=== PATIENT | male | born 2000 | race Caucasian/White ===

== ENCOUNTER 2023-03-28 15:30 | Outpatient (CLI) | payer OTHER, SELFPAY ==
[2023-03-28 16:27] LABS: Alanine Aminotransferase 16 U/L (6-50); Albumin Level 4.4 g/dL (3.5-5.1); Alkaline Phosphatase 57 U/L (38-126); Amylase 113 U/L (30-110); Aspartate Amino Transferase 22 U/L (17-59); Bilirubin,Total 0.5 mg/dL (0.2-1.3); Lipase 76 U/L (23-300)
== END 2023-03-28 15:31 | disposition home or self-care (01) ==
LOC: ANHLAB 15:31
PROVIDERS: Visit Provider Surgery
DX: K80.10 Calculus of gallbladder with chronic cholecystitis without obstruction (principal); Z01.818 Encounter for other preprocedural examination
CPT/HCPCS: 36415; 80076; 82150; 83690; 86850; 86900; 86901

== ENCOUNTER 2023-03-29 02:30 | Day surgery (SDC) | payer OTHER, SELFPAY ==
[2023-03-26 14:46] VITALS: BMI 23.4
--- NOTE | 2023-03-26 14:50 | PC.NURSE ---
Report to the Outpatient Waiting Room, entrance under the green pavilion located off [facility], at time 6:00 on date 03/29/23. Planned Procedure Time: 7:30. Time changes happen often and if your time is changed the preop area will call you the afternoon before. - You and your visitor will be asked to self-screen and do not enter if you have any COVID symptoms. - A mask is optional within the hospital at this time. Patients may have clear liquids (water, carbonated beverages, clear teas, apple juice) until 3 hours prior to surgery (4:30) with a maximum of 20 ounces. - No food from midnight until time of surgery Take the following medications with a SIP of water the morning of surgery: N/A DO NOT STOP ANY OF YOUR OTHER PRESCRIPTION MEDICATIONS PRIOR TO SURGERY ?EXCEPT THE FOLLOWING Medications to discontinue per physician: N/A Date to take last dose: N/A Please no make-up, nail vietnamese, hairspray, perfume, deodorant, or body powder the day of surgery. No jewelry (including any body piercings) or valuables the day of surgery, leave them at home. Please take a shower or bath the night before, or the morning of, surgery with an antibacterial soap (HIBICLENS). Wear comfortable, loose fitting clothing. - Jewelry must be removed prior to entering the operating room. Rings and piercings that are not removed may be cut off. - The hospital will not accept responsibility for valuables. - Please leave all valuables, including medications, at home the day of surgery. If you are going home after surgery, a licensed test driver must drive you home. - NO public transportation without another adult if you receive anesthesia. - We recommend that an adult stay with you for 24 hours following discharge. - We also recommend that you do not drive, make important decision, drink alcoholic beverages, or take any drugs that were not prescribed by your health care provider for at least 24 hours after your discharge time. Follow any additional instructions given to you from your surgeon. If you or anyone in your household have experienced Covid symptoms in the past week, please notify your surgeon or the nurse liaison at the phone number below for possible testing. Telephone instructions given to PT - RYLAN ALLISON and asked if any additional questions and then verbalized understanding. Patient advised to call surgeon office or pre surgery nurse liaison [phone] if any additional questions.
--- NOTE | 2023-03-28 13:40 | P.PNAN_ITS ---
Anes - Initial Pre Proc Eval Procedure: Operation Date: 03/29/23 07:30 Proposed Procedures p Laparoscopic Cholecystectomy - Chiara Urrutia MD Date/Time: 03/28/23 13:40 Surgeon: Chiara Urrutia MD Pre Op Diagnosis: Chr Cholecystitis with Calculous Patient Data Age: 22 Gender: M Height: 1.68 m Weight: 65.8 kg Allergies Allergy/AdvReac Type Severity Reaction Status Date / Time No Known Allergies Allergy Verified 04/04/23 20:08 Home Medications Medication Instructions Recorded Confirmed Type No Home Medications 03/29/23 04/05/23 History lorazepam 0.5 mg tablet (Ativan) 0.25 mg PO Q6H PRN anxiety #30 tabs 04/06/23 Rx Patient hx anesthesia problems: none Family hx anesthesia problems: none Results Review: All pre-operative results and documents have been reviewed as part of the pre- operative evaluation. [facility] Past Medical History Medical History Abnormal CT scan, gastrointestinal tract Cholelithiasis Nausea Upper abdominal pain Surgical History Surgical History History of appendectomy Social History Social History Smoking status: Never smoker Alcohol intake: never Alcohol use details: Maybe once a month Substance use: never Substance use type: does not use Lack of Transportation: No Lack of Food: Never True Current Housing: I Have Housing Concerned About Future Housing: No Difficulty Paying Gas/Electric Bills: No Difficulty Paying for Meds: No Currently Unemployed: No Education: Don't Know Difficulty w/ Childcare or Family Care: No Living arrangements: alone Spiritual care concerns: No Anes - Eval Final PreProcedure Day of Procedure 03/28/23 13:40 Patient weight: normal Heart: regular rate and rhythm Lungs: clear to auscultation Airway: Mallampati scale class II Neurological: alert and oriented Last oral intake: >/= 8 hours ASA classification: II Emergent: no Anesthetic plan: proceed Anesthesia type and monitoring: general ETT and standard monitoring Results Review: All pre-operative results and documents have been reviewed as part of the pre- operative evaluation. Informed Consent: The patient's anesthetic plan and its attendant risks and benefits were discussed with the patient/family/POA. Questions were solicited and answers provided to the satisfaction of the patient/family/POA.
[2023-03-29] VITALS (11 sets, daily range): BP systolic 107–146; BP diastolic 63–96; PULSE 56–117; RESP 12–30; TEMP 36.2–36.6; O2SAT 99–100
[2023-03-29] MEDS: LACTATED RINGERS 1,000 ML 30 ML IV CONT ×2 (07:11→08:18)
[2023-03-29] MEDS: KETOROLAC 15 MG/ML VIAL (*BKC) IV PUSH (07:12)
[2023-03-29] MEDS: ACETAMINOPHEN 500 MG TABLET 1000 MG PO (07:12)
--- NOTE | 2023-03-29 07:19 | WPDHPUPDATE1 ---
History and Physical Update Update Date/Time: 03/29/23 07:19 History and Physical has been reviewed, including an updated exam of the patient. There are NO changes in the patient's condition. Risks, benefits, and alternatives have been discussed and questions answered. Patient agrees to proceed with procedure.
[2023-03-29] MEDS: ceFAZolin 2 GM/D5W 50 ML 2 GM/50 ML BAG IVPB (07:30)
[2023-03-29] MEDS: BUPIVACAINE/EPINEPHRINE 0.25% 50 ML VIAL 30 ML INFILTRATE (07:46)
--- NOTE | 2023-03-29 08:23 | W.PM.PROC2 ---
Procedure Note - Detailed Date of Procedure 03/29/23 Pre-op Diagnosis Chronic Cholecystitis with Calculous Post-op Diagnosis Same Procedure Performed Laparoscopic cholecystectomy Surgeon Chiara Urrutia MD Anesthesia General Indications 22-year-old male presented to the office complaining of postprandial right upper quadrant abdominal pain associated with nausea and vomiting. Workup including imaging significant for cholecystitis, cholelithiasis. Findings Cholecystitis with cholelithiasis Description of Procedure The patient was taken to the operating room placed in the supine position. After adequate induction of general anesthesia, the patient was prepped and draped in normal sterile fashion. A time-out was then performed to verify the patient's identity as well as the procedure being performed. I then made a 5 mm incision in the infraumbilical region. Through this, a Veress needle was placed into the peritoneal cavity and CO2 gas was then insufflated. After adequate pneumoperitoneum was achieved, the Veress needle was removed and a 5 mm optiview trocar was placed through this incision under direct visualization. I then placed the laparoscope through this trocar site and under direct visualization placed a further 12 mm subxiphoid port as well as 2 additional 5 mm ports in the right upper abdomen. The gallbladder was then identified and was noted to be moderately inflamed and distended. I was able to place a grasper at the dome of the gallbladder and this was retracted anterior and cephalad up over the liver. A 2nd retractor was then placed at the infundibulum and retracted laterally, this allowed visualization of the triangle of Calot. I then was able to visualize the cystic duct in its entirety from its proximal insertion into the gallbladder, to its distal junction with the common hepatic/common bile duct junction. At this point, I carefully skeletonized the proximal cystic duct with the [place] dissector. I then clipped and transected the proximal cystic duct. Next I visualized the cystic artery. Again the artery was skeletonized, clipped, and transected. I then used the Bovie cautery to take down the peritoneal attachments of the gallbladder off the liver bed. Once the gallbladder specimen was completely detached, an endo-pouch was placed through the 12 mm port site. I then placed the gallbladder specimen into the Endo pouch and removed the endo-pouch from the 12 mm port site. The specimen will now be sent to pathology for further review. I then copiously irrigated the right upper quadrant. Hemostasis was noted in the liver bed, the clips were noted to be in good position on both the cystic duct stump and the cystic artery stump. No other pathology was noted in the right upper quadrant. I then moved the laparoscope to the subxiphoid port. No iatrogenic injury or other pathology was noted in the lower abdomen. I then closed the 12 mm trocar site under direct visualization using the Sina cone and 0 Vicryl suture. At this point, the abdomen was desufflated and all ports removed. All port sites were then closed with 4.O Monocryl subcuticular sutures. Dermabond was placed on each incision. The patient tolerated the procedure well, was extubated in the operating room postoperative and will be transferred to the recovery room in stable condition Estimated Blood Loss 5 Drains No Packing No Pathology Yes Complications No immediate complications Condition Stable Disposition PACU [facility] Billing Surgery - Charge Forward: Surgery Billing
[2023-03-29] MEDS: MEPERIDINE HCL INJ (*CRX) 50 MG/ML AMPUL 12.5 MG IV PUSH (08:49)
--- NOTE | 2023-03-29 08:52 | SUR.PHASEI ---
0851: Simple mask removed.
[2023-03-29] MEDS: fentaNYL CITRATE INJ (*CRX) 100 MCG/2 ML VIAL 25 MCG IV PUSH ×4 (08:56→09:13)
[2023-03-29] MEDS: ONDANSETRON INJ 4 MG/2 ML VIAL IV PUSH (08:59)
[2023-03-29] MEDS: oxyCODONE HCL (*CRX) 5 MG TAB IR PO (09:50)
[2023-03-29] MEDS: HYDROmorphone HCL INJ (*CRX) 1 MG/ML SYR 0.5 MG IV PUSH ×2 (10:39→10:55)
--- NOTE | 2023-03-29 17:42 | SUR.PHASEII ---
1040: RN called Dr. Urrutia because patient requested to speak to him in regards to his pain before discharge. Dr. Urrutia came to outpatient room and spoke to patient and spouse and reassured them. Patient rested more after some Dilaudid and then said he felt well enough to get dressed and go home.
== END 2023-03-29 11:40 | disposition home or self-care (01) ==
PROVIDERS: Visit Provider Surgery
PROC: 0FT44ZZ Resection of Gallbladder, Percutaneous Endoscopic Approach (ICD-10-PCS; CPT 47562; principal; 2023-03-29 07:30)
DX: K80.10 Calculus of gallbladder with chronic cholecystitis without obstruction (principal)
CPT/HCPCS: 47562; 36415; 80076; 82150; 83690; 86850; 86900; 86901; 88304; A9270; J0690; J1100; J1170; J1885; J2175; J2250; J2405; J2704; J3010; J7030; J7120

== ENCOUNTER 2023-03-29 18:41 | Observation (INO) | payer OTHER, SELFPAY ==
[2023-03-29] VITALS (7 sets, daily range): BP systolic 126–138; BP diastolic 80–88; PULSE 102–108; RESP 15–18; TEMP 36.4–36.9; O2SAT 99–100; BMI 25.3
--- NOTE | ~2023-03-29 | CT_ITS ---
EXAMINATION: CT abdomen pelvis w con DATE: 03/30/2023 10:44 INDICATION: Postoperative abdominal pain following cholecystectomy TECHNIQUE: Computed tomography (CT) of the abdomen and pelvis was performed with 100 mL Omnipaque-350 intravenous contrast. Automated exposure control and iterative reconstruction technique were employe d. The dose-length product was 434.88 mGy-cm. COMPARISON: None FINDINGS: Small right pleural effusion. Mild atelectasis in the dependent lower lobes. Heart size is normal. No pericardial or pleural effusion. Cholecystectomy clips at the gallbladder fossa. There is moderate a mount of greater than simple fluid attenuation hemoperitoneum throughout the abdomen and pelvis. High est attenuation blood is seen in the right upper quadrant at the gallbladder fossa along the posterio r margin of the liver. No evident active contrast extravasation. A few tiny foci of likely residual p ostoperative free intraperitoneal gas in the right upper quadrant. Small region of decreased attenuat ion near the ligamentum teres classically evaluation for focal fat although given the recent surgery and hemoperitoneum could not exclude an echogenic hepatic injury. Spleen, pancreas, bilateral adrenal glands and kidneys are normal. No abnormal bowel wall thickening or obstruction. Suture line at the tip the cecum likely related to prior appendectomy. Bladder is normal. No pathologically enlarged abd ominal or pelvic lymphadenopathy. Mild lower thoracic spondylosis. IMPRESSION: 1. Moderate amount of hemoperitoneum with sentinel clot sign the right upper quadrant likely related to the recent cholecystectomy but without evident active contrast extravasation. Small focus of decre ased hepatic attenuation at the ligamentum teres typical location for focal fat although given the si gnificant pneumoperitoneum could not exclude iatrogenic hepatic injury at this location. 2. Small right pleural effusion. Reviewed, dictated and finalized at location B. IMPRESSION: 1. Moderate amount of hemoperitoneum with sentinel clot sign the right upper qu adrant likely related to the recent cholecystectomy but without evident active contrast extravasation. Small focus of decreased hepatic attenuation at the lig amentum teres typical location for focal fat although given the significant pne umoperitoneum could not exclude iatrogenic hepatic injury at this location. 2. Small right pleural effusion.
[2023-03-29 19:18] LABS: Basophils Percent Auto 0.2 % (0.2-1.2); Hematocrit 37.4 % (42.0-52.0); Hemoglobin 12.2 g/dL (14.0-18.0); Immature Granulocyte Absolute 0.06 K/mm3 (0.00-0.031); Immature Granulocyte Percent A 0.4 % (0-0.5); Lymphocytes Absolute Auto 0.62 K/mm3 (0.9-3.2); Lymphocytes Percent Auto 4.1 % (18.3-44.2); Mean Corpuscular HGB Conc 32.6 g/dl (32-36); Mean Corpuscular Hemoglobin 31.4 pg (26-34); Mean Corpuscular Volume 96.4 fl (80-100); Mean Platelet Volume 10.1 fl (7.4-10.4); Monocytes Absolute Auto 0.7 K/mm3 (0.1-0.6); Monocytes Percent Auto 4.5 % (2.6-8.5); Neutrophils Absolute Auto 13.9 K/mm3 (1.3-6.7); Neutrophils Percent Auto 90.8 % (45.5-73.1); Platelet Count Result 372 k/mm3 (150-375); Red Blood Count 3.88 M/mm3 (4.6-6.20); Red Cell Distribution Width 12.7 % (11.5-14.5); White Blood Count 15.3 K/mm3 (4.5-10.0)
[2023-03-29 19:32] LABS: Appearance Urine Clear (Clear); Bilirubin Urine Negative (Negative); Blood Urine Negative (Negative); Color Urine Yellow (Yellow); Glucose Urine UA Negative (Negative); Ketones Urine Trace mg/dL (Negative); Leukocyte Esterase Ur Negative LEU/UL (Negative); Nitrate Urine Negative (Negative); Protein Urine Negative (Negative); Specific Grav Ur 1.025 (1.001-1.035); Urobilinogen Urine 0.2 mg/dL (<2.0)
--- NOTE | 2023-03-29 19:32 | ED.GENADULT ---
HPI - General Adult General Chief complaint: Recheck/Abnormal Lab/Rx Stated complaint: post op pain Time Seen by Provider: 03/29/23 19:13 History of Present Illness HPI narrative: Patient 22-year-old gentleman who presents the emergency department with chief complaint of abdominal pain. Patient reports that he was just discharged from the hospital today at approximately noon after having a laparoscopic cholecystectomy performed by Dr. Urrutia. Patient reports that he has been having severe pain since then and reports that he had several episodes of syncope including when he was getting out of the vehicle and when he was coming to the hospital. Patient reports the pain is worse with movement and inspiration patient denies fever denies vomiting. The patient reports that he called his surgeon and they recommended that he come to the emergency department Related Data Allergies Allergy/AdvReac Type Severity Reaction Status Date / Time No Known Allergies Allergy Verified 03/29/23 07:34 Review of Systems Review of Systems: A 10 system review of systems was completed on the patient and is negative except for what is stated in the HPI. Nursing and ancillary documentation was reviewed. [facility] Past Medical History Medical History Abnormal CT scan, gastrointestinal tract Cholelithiasis Nausea Upper abdominal pain Surgical History Surgical History History of appendectomy Social History Social History Smoking status: Never smoker Alcohol intake: never Alcohol use details: Maybe once a month Substance use: never Substance use type: does not use Living arrangements: alone Spiritual care concerns: No Exam Narrative: GENERAL: Well-appearing, well-nourished, and in no acute distress. HEAD: Normocephalic, atraumatic. EYES: PERRLA and EOMI. ENT: Nares clear, no rhinorrhea or epistaxis. Mucous membranes moist. NECK: Supple. CHEST: Clear to auscultation. No respiratory distress. HEART: Regular rate and rhythm. No murmur heard. Normal peripheral pulses. ABDOMEN: Soft, diffusely tender to palpation incisions are well approximated with no bleeding, nondistended, normal active bowel sounds. EXTREMITIES: Normal range of motion. No edema. SKIN: Warm, dry, no rash. NEURO: No focal deficits. Alert and oriented x3. PSYCH: Normal mood and affect. Course Course Emergency Course: Differential diagnosis includes postoperative pain, biliary leak, post insufflation pain. Laboratory studies were obtained on the patient which showed a white count of 15.3 electrolytes were within normal limits liver enzymes showed a bilirubin of 0.5 and AST of 34 and an ALT of 45 and alk phos of 43. Given these findings it would be fairly low likelihood that this will be a bile leak patient was given pain medications in the emergency department and the case was discussed with the patient's surgeon Dr. Urrutia who will admit the patient for observation. Vital Signs Vital signs: Vital Signs Temperature 36.4 C 03/29/23 18:41 Pulse Rate 108 H 03/29/23 18:41 Respiratory Rate 18 03/29/23 18:41 Blood Pressure 132/80 03/29/23 18:41 Pulse Oximetry 100 03/29/23 18:41 Temperature 36.4 C 03/29/23 18:41 Pulse Rate 107 H 03/29/23 19:18 Respiratory Rate 15 03/29/23 19:18 Blood Pressure 138/80 03/29/23 19:18 Pulse Oximetry 100 03/29/23 19:18 Medical Decision Making Vital Signs Vital Signs: Vital Signs Temperature 36.4 C 03/29/23 18:41 Pulse Rate 108 H 03/29/23 18:41 Respiratory Rate 18 03/29/23 18:41 Blood Pressure 132/80 03/29/23 18:41 Pulse Oximetry 100 03/29/23 18:41 Temperature 36.4 C 03/29/23 18:41 Pulse Rate 107 H 03/29/23 19:18 Respiratory Rate 15 03/29/23 19:18 Blood Pressure 1
[2023-03-29] MEDS: ONDANSETRON INJ 4 MG/2 ML VIAL IV PUSH (19:33)
[2023-03-29] MEDS: SODIUM CHLORIDE 0.9% IV 1,000 ML 999 ML IV CONT (19:33)
[2023-03-29] MEDS: HYDROmorphone HCL INJ (*CRX) 1 MG/ML SYR IV PUSH ×4 (19:33→23:50)
[2023-03-29 19:44] LABS: Alanine Aminotransferase 45 U/L (6-50); Albumin Level 4.2 g/dL (3.5-5.1); Alkaline Phosphatase 43 U/L (38-126); Anion Gap 11 mmol/L (8-16); Aspartate Amino Transferase 34 U/L (17-59); Bilirubin,Total 0.5 mg/dL (0.2-1.3); Blood Urea Nitrogen 12 mg/dL (9-20); Calcium 8.7 mg/dL (8.4-10.2); Carbon Dioxide 27 mmol/L (22-30); Chloride 99 mmol/L (98-107); Estimated CRCL calculation 132 ml/min; Estimated Glomerular Filt Rate > 60; Glucose 149 mg/dL (65-110); Lipase 34 U/L (23-300); Potassium 4.7 mmol/L (3.4-5.0); Sodium 137 mmol/L (137-145)
[2023-03-29 19:46] LABS: Add Urine Microscopic? NO
--- NOTE | 2023-03-29 20:40 | PC.NURSE ---
Phone number for pts significant other, Lianet, .
[2023-03-29] MEDS: SODIUM CHLORIDE 0.9% IV 1,000 ML 125 ML IV CONT (21:36)
--- NOTE | 2023-03-29 21:42 | ADMGEN ---
This patient, Quan Medina, was admitted to Medical Room 347-01. Patient/family oriented to hospital policies and general routines including ID bracelet, bed and alarms, visiting hours, pain management, procedures, bathroom and other care routines, personal items, smoking policy, room service/diet, and visiting hours. Information on how to activate the Rapid Response Team has been discussed. Patient/Family are encouraged to report perceived risks to care and to ask questions if they do not understand what they are told or what they should do.
[2023-03-29] MEDS: diphenhydrAMINE HCl CAP 25 MG CAPSULE PO (23:08)
[2023-03-29] MEDS: KETOROLAC 30 MG/ML VIAL (*BKC) IV PUSH (23:08)
[2023-03-30] VITALS (19 sets, daily range): BP systolic 112–134; BP diastolic 58–94; PULSE 106–145; RESP 14–18; TEMP 36.3–37.6; O2SAT 92–100
[2023-03-30] MEDS: HYDROmorphone HCL INJ (*CRX) 1 MG/ML SYR IV PUSH ×5 (01:46→22:10)
[2023-03-30] MEDS: HYDROcodone/acetaminophen (*CRX) 5-325 MG TABLET 1 TAB PO (01:50)
[2023-03-30] MEDS: ONDANSETRON INJ 4 MG/2 ML VIAL IV PUSH ×3 (02:18→22:07)
[2023-03-30] MEDS: KETOROLAC 30 MG/ML VIAL (*BKC) IV PUSH ×2 (05:30→12:45)
[2023-03-30] MEDS: SODIUM CHLORIDE 0.9% IV 1,000 ML 125 ML IV CONT ×2 (05:31→19:11)
[2023-03-30 06:37] LABS: Albumin Level 3.4 g/dL (3.5-5.1); Alkaline Phosphatase 38 U/L (38-126); Anion Gap 11 mmol/L (8-16); Aspartate Amino Transferase 30 U/L (17-59); Bilirubin,Total 0.4 mg/dL (0.2-1.3); Blood Urea Nitrogen 15 mg/dL (9-20); Calcium 8.2 mg/dL (8.4-10.2); Carbon Dioxide 24 mmol/L (22-30); Chloride 100 mmol/L (98-107); Estimated CRCL calculation 105 ml/min; Estimated Glomerular Filt Rate > 60; Glucose 181 mg/dL (65-110); Potassium 4.9 mmol/L (3.4-5.0); Sodium 135 mmol/L (137-145)
[2023-03-30 06:39] LABS: Alanine Aminotransferase 43 U/L (6-50)
[2023-03-30 08:07] LABS: Hematocrit 26.6 % (42.0-52.0); Hemoglobin 8.6 g/dL (14.0-18.0); Mean Corpuscular HGB Conc 32.3 g/dl (32-36); Mean Corpuscular Hemoglobin 31.7 pg (26-34); Mean Corpuscular Volume 98.2 fl (80-100); Mean Platelet Volume 9.7 fl (7.4-10.4); Platelet Count Result 338 k/mm3 (150-375); Red Blood Count 2.71 M/mm3 (4.6-6.20); Red Cell Distribution Width 13.1 % (11.5-14.5); White Blood Count 22.9 K/mm3 (4.5-10.0)
[2023-03-30] MEDS: PANTOPRAZOLE SODIUM IV 40 MG VIAL IV PUSH ×2 (08:41→22:07)
[2023-03-30 09:13] LABS: Band Neutrophils Percent 6 % (0-6); Lymphocytes Absolute Manual 0.45 K/mm3 (1.1-4.5); Monocytes Absolute Manual 1.83 K/mm3 (0.1-0.90); Monocytes Percent Manual 8 % (3-9); Neutrophils Absolute Manual 20.61 K/mm3 (1.3-6.7); Neutrophils Percent Manual 84 % (46-73); Platelet Estimate Adequate (Adequate); Schistocytes None Seen (NORMAL); Total Cells Counted 100
--- NOTE | 2023-03-30 09:34 | PM.IMHP ---
H&P: HPI History of Present Illness Date/Time: 03/30/23 09:34 Chief Complaint: abdominal pain Narrative: Pt is a 22 y/o M s/p lap marley on 03/29 representing to ED c/o intractable abd pain, SOB. Pt reports pain was initially better after dc from surgery but became severe after going home. Pt also reports assoc N/V, pain radiating to his chest. Pt reports pain was so bad that he fainted. Review of Systems Review of Systems: All systems reviewed & are unremarkable except as noted in HPI and below PMFSH Past Medical History Medical History Abnormal CT scan, gastrointestinal tract Cholelithiasis Nausea Upper abdominal pain Surgical History Surgical History History of appendectomy Social History Social History Smoking status: Never smoker Alcohol intake: current Alcohol use details: Maybe once a month Substance use: never Substance use type: does not use Lack of Transportation: No Lack of Food: Never True Current Housing: I Have Housing Concerned About Future Housing: No Difficulty Paying Gas/Electric Bills: No Difficulty Paying for Meds: No Currently Unemployed: No Education: Don't Know Difficulty w/ Childcare or Family Care: No Living arrangements: alone Spiritual care concerns: No Meds Home Medications and Allergies Home Medications Medication Instructions Recorded Confirmed Type No Home Medications 03/29/23 03/29/23 History Allergies Allergy/AdvReac Type Severity Reaction Status Date / Time No Known Allergies Allergy Verified 03/29/23 07:34 Vital Signs Vital Signs - 24 hr 03/29/23 18:41 03/29/23 19:18 03/29/23 19:59 Temperature 36.4 C Pulse Rate 108 H 107 H Respiratory Rate 18 15 Blood Pressure 132/80 138/80 Pulse Oximetry 100 100 100 Oxygen Delivery 03/29/23 20:00 03/29/23 20:30 03/29/23 21:15 Temperature Pulse Rate 104 H 102 H Respiratory Rate 15 15 Blood Pressure 132/88 128/86 Pulse Oximetry 99 100 100 Oxygen Delivery 03/29/23 21:35 03/30/23 00:12 03/30/23 03:58 Temperature 36.9 C 36.6 C Pulse Rate 103 H 133 H Respiratory Rate 18 18 Blood Pressure 126/88 116/82 Pulse Oximetry 100 99 Oxygen Delivery Room Air 03/30/23 06:00 03/30/23 08:30 Temperature 36.3 C L Pulse Rate 130 H Respiratory Rate 16 Blood Pressure 116/71 Pulse Oximetry 100 Oxygen Delivery Room Air Exam Const: General: cooperative, well developed, alert, awake, Physically active, acute distress mild and average body habitus HENMT: Head: normal to inspection, normocephalic and atraumatic Eyes: General: appearance normal, both eyes and all related structures Neck: Neck: normal visual inspection, full ROM and no lymphadenopathy Resp: Effort & Inspection: normal respiratory effort Auscultation: clear to auscultation bilaterally Cardio: Rate: tachycardic Rhythm: regular rhythm GI: Inspection: normal to inspection, distended and incision GI Palp: Yes abdominal tenderness, Yes Soft to palpation, Yes Tenderness to palpation present (GI), Yes Guarding due to palpation present (GI), No Rigid due to palpation and No Hernia present Skin: General skin exam: normal color and no rashes or lesions noted Neuro: General: patient oriented x3 and CN's II-XI intact bilaterally Extrem: General: normal to inspection and full ROM H&P: Results Labs Labs: Short CBC 03/29/23 03/30/23 Range/Units 19:12 08:01 WBC 15.3 H 22.9 H (4.5-10.0) K/mm3 Hgb 12.2 L 8.6 L D (14.0-18.0) g/dL Hct 37.4 L 26.6 L (42.0-52.0) % Plt Count 372 338 (150-375) k/mm3 [facility] 03/29/23 03/30/23 19:12 05:58 Sodium 137 135 L Potassium 4.7 4.9 Chloride 99 100 Carbon Dioxide 27 24 BUN 12 15 Creatinine 0.70 0.90 Glucose 149 H 181 H Calcium 8.7 8.2 L Live
[2023-03-30] MEDS: MORPHINE SULFATE (*CRX) 2 MG/ML INJ IV PUSH (10:03)
[2023-03-30 13:08] LABS: Hematocrit 21.4 % (42.0-52.0); Hemoglobin 7.1 g/dL (14.0-18.0)
--- NOTE | 2023-03-30 13:43 | WPDANESEPPF ---
Anes - Initial Pre Proc Eval Procedure: Operation Date: 03/30/23 15:00 Proposed Procedures p Diagnostic Laparoscopy,Evacuation Hemoperitoneum - Chiara Urrutia MD Date/Time: 03/30/23 13:43 Surgeon: Chiara Urrutia MD Pre Op Diagnosis: postoperative pain Patient Data Age: 22 Gender: M Height: 1.7 m Weight: 73.5 kg Last Vital Signs Temp 36.3 C L 03/30/23 06:00 Pulse 130 H 03/30/23 06:00 Resp 16 03/30/23 06:00 BP 116/71 03/30/23 06:00 Pulse Ox 99 03/30/23 09:47 O2 Del Method Room Air 03/30/23 09:47 Allergies Allergy/AdvReac Type Severity Reaction Status Date / Time No Known Allergies Allergy Verified 03/30/23 14:24 Home Medications Medication Instructions Recorded Confirmed Type No Home Medications 03/29/23 03/29/23 History Laboratory Tests 03/29/23 03/29/23 03/30/23 19:12 19:25 05:58 WBC 15.3 H K/mm3 (4.5-10.0) RBC 3.88 L M/mm3 (4.6-6.20) Hgb 12.2 L g/dL (14.0-18.0) Hct 37.4 L % (42.0-52.0) MCV 96.4 fl (80-100) MCH 31.4 pg (26-34) MCHC 32.6 g/dl (32-36) RDW 12.7 % (11.5-14.5) Plt Count 372 k/mm3 (150-375) MPV 10.1 fl (7.4-10.4) Immature Gran % (Auto) 0.4 % (0-0.5) Neut % (Auto) 90.8 H % (45.5-73.1) Lymph % (Auto) 4.1 L % (18.3-44.2) [place] % (Auto) 4.5 % (2.6-8.5) Eos % (Auto) 0.0 % (0-4.4) Baso % (Auto) 0.2 % (0.2-1.2) Lymph # (Auto) 0.62 L K/mm3 (0.9-3.2) [place] # (Auto) 0.7 H K/mm3 (0.1-0.6) Eos # (Auto) 0.0 K/mm3 (0-0.3) Baso # (Auto) 0.0 K/mm3 (0.0-0.1) Abs Immat Gran (auto) 0.06 H K/mm3 (0.00-0.031) Absolute Neuts (auto) 13.9 H K/mm3 (1.3-6.7) Absolute Nucleated RBC 0.0 K/mm3 (0.0-0.012) Total Counted Neutrophils % (Manual) Band Neutrophils % Lymphocytes % (Manual) Monocytes % (Manual) Nucleated RBC % 0.0 % (0.0-0.2) Abs Neuts (Manual) Abs Lymphs (Manual) Abs Monocytes (Manual) Platelet Estimate Schistocytes Sodium 137 mmol/L 135 L mmol/L (137-145) (137-145) Potassium 4.7 mmol/L 4.9 mmol/L (3.4-5.0) (3.4-5.0) Chloride 99 mmol/L 100 mmol/L (98-107) (98-107) Carbon Dioxide 27 mmol/L 24 mmol/L (22-30) (22-30) Anion Gap 11 mmol/L 11 mmol/L (8-16) (8-16) BUN 12 mg/dL 15 mg/dL (9-20) (9-20) Creatinine 0.70 mg/dL 0.90 mg/dL (0.7-1.3) (0.7-1.3) Estim Creat Clear Calc 132 ml/min 105 ml/min Estimated GFR > 60 > 60 (59 - ) (59 - ) Glucose 149 H mg/dL 181 H mg/dL (65-110) (65-110) Calcium 8.7 mg/dL 8.2 L mg/dL (8.4-10.2) (8.4-10.2) Total Bilirubin 0.5 mg/dL 0.4 mg/dL (0.2-1.3) (0.2-1.3) AST 34 U/L 30 U/L (17-59) (17-59) ALT 45 U/L 43 U/L (6-50) (6-50) Alkaline Phosphatase 43 U/L 38 U/L (38-126) (38-126) Total Protein 7.0 g/dL 6.0 L g/dL (6.3-8.2) (6.3-8.2) Albumin 4.2 g/dL 3.4 L g/dL (3.5-5.1) (3.5-5.1) Lipase 34 U/L (23-300) Urine Color Yellow (Yellow) Urine Appearance Clear (Clear) Urine pH 6.0 (5.0-9.0) Ur Specific [place] 1.025 (1.001-1.035) Urine Protein Negative mg/dL (Negative) Urine Glucose (UA) Negative mg/dL (Negative) Urine Ketones Trace H mg/dL (Negative) Ur Blood (Man) Negative (Negative) Urine Nitrate Negative (Negative) Urine Bilirubin Negative (Negative) Urine Urobilinogen 0.2 mg/dL (<2.0) Leukocyte Esterase Rfl Negative LUCINA/UL (Negative) 03/30/23 03/30/23 08:01 12:52 WBC 22.9 H K/mm3 (4.5-1
--- NOTE | 2023-03-30 14:00 | PC.NURSE ---
Per Dr. Urrutia - pt needs 1 unit PRBC r/t hemoglobin of 7.1. RN went into pt's room to notify him of this and pt stated that he is a jehovahs witness. RN notified Dr. Urrutia. Pt refusing blood at this time.
[2023-03-30] MEDS: LACTATED RINGERS 1,000 ML 30 ML IV CONT ×4 (14:20→18:09)
--- NOTE | 2023-03-30 14:22 | PC.NURSE ---
RN received phone call from Dr. Urrutia stating to make pt NPO for possible surgery at 1530 r/t CT scan results. Dr. Urrutia stated he would be by to see pt on the floor before taking him to OR to explain everything. RN received a call from the OR at 1400 stating they would be up in 10 minutes to get pt for surgery. They stated Dr. Urrutia would meet pt down in pre-op. RN, nurse manager heart failure and other RN on the floor went into pt's room to explain this.
--- NOTE | 2023-03-30 15:07 | WPDHPUPDATE1 ---
History and Physical Update Update Date/Time: 03/30/23 15:07 History and Physical has been reviewed, including an updated exam of the patient. There are NO changes in the patient's condition. Risks, benefits, and alternatives have been discussed and questions answered. Patient agrees to proceed with procedure. CT reviewed and c hemoperitoneum c no active extravasation. Given symptomatology decision made to proceed to OR for exploratory laparoscopy, possible open.
[2023-03-30] MEDS: fentaNYL CITRATE INJ (*CRX) 100 MCG/2 ML VIAL 50 MCG IV PUSH (15:50)
--- NOTE | 2023-03-30 15:50 | PCCCNOTE ---
Met with patient in Preop 11, patient wanting complete to complete healthcare power of employment attorney paperwork. Educated patient how to complete and witnessed the signing. Copy placed in the chart, and original given back to patient.
[2023-03-30] MEDS: ceFAZolin 2 GM/D5W 50 ML 2 GM/50 ML BAG IVPB (16:23)
--- NOTE | 2023-03-30 17:14 | P.OP_ITS ---
Procedure Note - Detailed Date of Procedure 03/30/23 Pre-op Diagnosis postoperative bleeding, hemoperitoneum Post-op Diagnosis Same Procedure Performed exploratory laparoscopy, evacuation of approximately 1500 mL of dark red blood and clot, washout, placement of Surgicel and hemoaderm, placement of right upper quadrant drain Surgeon Chiara Urrutia MD Anesthesia General Indications 22-year-old male status post laparoscopic cholecystectomy re presenting with massive hemoperitoneum Findings 1500 mL dark red blood and clot mostly located in the right upper quadrant around the liver, no active bleeding identified Description of Procedure The patient was taken to the operating room and placed in the supine position. After adequate induction of general anesthesia, the patient was prepped and draped in the normal sterile fashion. A time-out was then done to verify the patient's identity, as well as the procedure being performed. I began by reopening the 5 mm incision in the infraumbilical region. I then placed a Veress needle through this incision into the peritoneal cavity. Pneumoperitoneum was achieved at this point and a Veress needle was removed. I then placed the Optiview trocar under direct visualization through the site. Upon entering the abdomen, there was noted to be a significant amount of dark red blood and clot in the right upper quadrant. I then placed a further 12 mm port in the subxiphoid region and an additional 5 mm port in the right mid abdomen. I began by suctioning the clot and dark red blood in the right upper quadrant. There was approximately 1200 mL of old blood in this area. Once suctioned away, I examined the liver bed. The clips of the previous cholecystectomy were noted to be intact on both the duct and the artery. No bleeding was noted from the liver bed, gallbladder fossa. I then copiously irrigated this area and placed omentum up in the gallbladder fossa. I then examined the rest of the abdomen, including suctioning approximately 200-300 mL of dark blood in the pelvis. The rest of the abdomen was completely unremarkable. I then re-examined the right upper quadrant and again no further bleeding was noted. Given these findings, I placed hemaderm and Surgicel in the gallbladder fossa. I also proceeded to leave a 19 [place]ish CARMITA drain in the right upper quadrant coming out through the right 5 mm mid abdominal port. At this point the abdomen was desufflated and all ports removed. The fascia of the 12 mm port site was closed with an 0 Vicryl [id number] suture. Both port sites were then closed with 4-0 Monocryl subcuticular suture. Dermabond was then placed on the wounds. The patient tolerated the procedure well and will be transferred to the recovery room in stable condition. Estimated Blood Loss 1,500 Urine Output 200 Drains Yes Packing No Pathology None sent Complications No immediate complications Condition Stable Disposition PACU [facility] Billing Surgery - Charge Forward: Surgery Billing
--- NOTE | 2023-03-30 17:35 | PC.NURSE ---
RN received call about critical H&H (hgb 5.5 / hct 17) while pt was in OR. RN called Dr. Urrutia to notify him of this. RN questioned if MD would like to put in for a repeat H&H - MD stated not at this time. Pt being transferred from OR to IMU, room 202, for closer monitoring and telemetry.
[2023-03-30] MEDS: HYDROmorphone HCL INJ (*CRX) 1 MG/ML SYR 0.25 MG IV PUSH ×3 (17:47→18:05)
--- NOTE | 2023-03-30 17:53 | SUR.PHASEI ---
Clarified IV Iron order with Dr. Urrutia. Stated he would like patient to receive 1000mg of IV Iron over 15 minutes IVPB. Called pharmacy and spoke with Nneka to relay order update.
[2023-03-30 17:54] LABS: Hemoglobin 5.5 g/dL (14.0-18.0)
[2023-03-30 18:07] LABS: INR 1.3; Prothrombin Time 16.6 Seconds (11.1-14.7)
[2023-03-30 18:08] LABS: Partial Thromboplastin Time 28.6 SECONDS (22.3-36.8)
--- NOTE | 2023-03-30 18:43 | PC.NURSE ---
1820 - RN faxed SBAR of this pt going into room 202
[2023-03-30] MEDS: diphenhydrAMINE HCl CAP 25 MG CAPSULE PO ×2 (19:44→23:02)
--- NOTE | 2023-03-30 19:51 | PC.NURSE ---
This patient, Quan Medina, was received from [ PACU] on 03/30/23 at 1840. Patient/family oriented to unit policies and routines Confirmed with patient that he does not want to receive whole blood; however, he will receive fragmented blood. Consent stating such placed in chart. Dr. Urrutia called to confirm no post op antibiotics or blood work are ordered for tonight. States he just wants to monitor the patient overnight since nothing looked infections, but if signs show up to notify him.
[2023-03-30] MEDS: PIPERACILLN/TAZ 3.375GM/NS50ML 3.375 GM/50 ML BAG IVPB (22:08)
[2023-03-31] VITALS: PULSE 113
[2023-03-31 00:06] VITALS: BP 131/67; PULSE 112; RESP 18; TEMP 37.5; O2SAT 96
--- NOTE | 2023-03-31 02:20 | PM.EVENT ---
Event Note Event Note Event Note: 03/30/2023 [address] Urrutia who had been talking with the patient. Dr. Urrutia stated that the hospitalist has been consulted due to the patient's anemia. The patient developed postop bleeding hemoperitoneum in the expiratory laparoscopic surgery was performed today with approximately 1500 mL of dark red blood and clots washed out placement of surgical and he mature placement of right upper quadrant drain. I did not assess the patient. I spoke with the patient in the family about other options for blood transfusions as the patient is a Jehovah Witness. I also called the pharmacy to see if we carried Hespan and pharmacy stated that we do have Hespan. The patient appears to be hemodynamically stable with an H&H of 5.5 and 17.0. His blood pressure is 131/67. His heart rate was 112. I did not consult on the patient as the patient was being accepted to an outside facility. Dr. Urrutia has arranged for the patient to be transferred to outside facility. I did not physically assess the patient. I only spoke with the family to discuss Hespan. I was not made aware of the consult prior to preparation for the patient's transfer. Please cancel the consultation as the patient was being transferred to outside facility. I only spoke with family briefly about blood transfusion options. Please see surgical notes.
--- NOTE | 2023-03-31 06:59 | WPDANESPN ---
Anes - Prog Note Post-Op Date/Time: 03/31/23 06:59 Cardiovascular status: normal Respiratory status: normal Airway patency: baseline Mental status: baseline Post-Op hydration status: normal Vital Signs: Last Vital Signs Temp 37.5 C 03/31/23 00:06 Pulse 112 H 03/31/23 00:06 Resp 18 03/31/23 00:06 BP 131/67 03/31/23 00:06 Pulse Ox 96 03/31/23 00:06 O2 Del Method Room Air 03/30/23 23:40 O2 Flow Rate 8 03/30/23 17:16 FiO2 21 03/30/23 22:47 Pain Score (VAS): 2 I/O: Intake & Output 03/30/23 03/30/23 03/31/23 15:59 23:59 07:59 Intake Total 360 3050 Output Total 2465 125 Balance 360 585 -125 Laboratory Tests 03/30/23 17:35 03/30/23 05:58 03/30/23 03/30/23 03/30/23 08:01 12:52 14:07 WBC 22.9 H RBC 2.71 L Hgb 8.6 L D 7.1 L Hct 26.6 L 21.4 L MCV 98.2 MCH 31.7 MCHC 32.3 RDW 13.1 Plt Count 338 MPV 9.7 Immature Gran % (Auto) Not Reportable Neut % (Auto) Not Reportable Lymph % (Auto) Not Reportable Meigs % (Auto) Not Reportable Eos % (Auto) Not Reportable Baso % (Auto) Not Reportable Lymph # (Auto) Not Reportable Meigs # (Auto) Not Reportable Eos # (Auto) Not Reportable Baso # (Auto) Not Reportable Abs Immat Gran (auto) Not Reportable Absolute Neuts (auto) Not Reportable Absolute Nucleated RBC Not Reportable Total Counted 100 Neutrophils % (Manual) 84 H Band Neutrophils % 6 Lymphocytes % (Manual) 2.0 L Monocytes % (Manual) 8 Nucleated RBC % Not Reportable Abs Neuts (Manual) 20.61 H Abs Lymphs (Manual) 0.45 L Abs Monocytes (Manual) 1.83 H Platelet Estimate Adequate Schistocytes None seen PT INR APTT Blood Type B Positive Antibody Screen Negative Crossmatch See Detail 03/30/23 03/30/23 17:35 17:40 WBC RBC Hgb 5.5 L* Hct 17.0 L* MCV MCH MCHC RDW Plt Count MPV Immature Gran % (Auto) Neut % (Auto) Lymph % (Auto) Meigs % (Auto) Eos % (Auto) Baso % (Auto) Lymph # (Auto) Meigs # (Auto) Eos # (Auto) Baso # (Auto) Abs Immat Gran (auto) Absolute Neuts (auto) Absolute Nucleated RBC Total Counted Neutrophils % (Manual) Band Neutrophils % Lymphocytes % (Manual) Monocytes % (Manual) Nucleated RBC % Abs Neuts (Manual) Abs Lymphs (Manual) Abs Monocytes (Manual) Platelet Estimate Schistocytes PT 16.6 H INR 1.3 APTT 28.6 Blood Type Antibody Screen Crossmatch Post-procedural complaints: none Patient Feedback: Patient satisfied with anesthetic care.
--- NOTE | 2023-03-31 09:13 | PM.DS ---
DS: Admitting Diagnosis Discharge Date 03/31/23 Admitting Diagnosis Postoperative abdominal pain DS: Discharge Diagnosis Discharge Diagnosis (1) Hemoperitoneum: Code(s): K66.1 - Hemoperitoneum Status: Acute Assessment and Plan: status post exploratory laparoscopy and washout, no active bleed observed during procedure, drain left and right upper quadrant, hemodynamically stable, hemoglobin 5.5 postoperatively, long discussion with patient and family regarding [facility] status and decision to transfer to [place] for blood products, possible IR intervention (2) Refusal of blood transfusions as patient is [facility]: Code(s): Z53.1 - Procedure and treatment not carried out because of patient's decision for reasons of belief and group pressure Status: Acute Assessment and Plan: patient reports that he is able to take fractions of blood products, unable to obtain products here, transfer to tertiary [place] for better availability of products DS: Summary Hospital Course Reason for hospitalization: postoperative abdominal pain Hospital Course: The patient is a 22-year-old male status post laparoscopic cholecystectomy on 03/29/2023. The patient re-presented to the emergency department later that night complaining of severe upper abdominal pain, urinary retention. The patient was admitted to my service for pain control. Upon evaluation in the a.m., the patient continued to have severe symptomatology. Subsequent CT scan was done showing hemoperitoneum, with no active extravasation. The patient also did have a drop in his hemoglobin from his initial presentation. Given these findings, decision was made to proceed to the operating room for exploratory laparoscopy. Please see full operative report for details of this procedure as the patient did have a washout and evacuation of hemoperitoneum. Of note, no active bleeding was noted. Postoperatively, the patient had a recheck hemoglobin that was 5.5. Hematology was consulted and per their recommendations the patient was started on iron, B12, folic acid. The patient was noted to be hemodynamically stable. A long discussion was had with the patient and his family and they decided they would like transferred to [facility] for availability of different blood products, as well as possible IR intervention. I proceeded to facilitate the patient's request to be transferred and subsequent transfer was arranged to [facility]. Status at Discharge Functional status at discharge: independent ambulation Overall status at discharge: patient is not back to baseline Time Spent with Patient Time attestation: Total time spent providing and/or coordinating discharge services: Time spent: Greater than 30 minutes Exam Const: General: cooperative, comfortable, no acute distress, anxious and tired appearing HENMT: Head: normal to inspection Resp: Auscultation: clear to auscultation bilaterally Cardio: Rate: tachycardic Rhythm: regular rhythm GI: Inspection: normal to inspection and distended GI Palp: Yes abdominal tenderness, Yes Soft to palpation, Yes Tenderness to palpation present (GI), No Guarding due to palpation present (GI) and No Rigid due to palpation Other: CARMITA c mod s/s drainage DS: Data Data Completed and Pending Labs on day of discharge: Labs from last 24 hours 03/30/23 03/30/23 03/30/23 17:40 17:35 14:07 Hgb 5.5 L* Hct 17.0 L* Total Counted Neutrophils % (Manual) Band Neutrophils % Lymphocytes % (Manual) Monocytes % (Manual) Abs Neuts (Manual) Abs Lymphs (Manual) Abs Monocytes (Manual) Platelet Estimate Schistocytes PT 16.6 H INR 1.3 APTT 28.6 Blood Type B Positive Antibody Screen Negative Crossmatch See Detail 03/30/23 03/30/23 12:52 08:01 Hgb 7.1 L Hct 21.4 L Total Counted 100 Neutrophils % (Manual) 84 H Band Neutrophils % 6 Lymphocytes % (Manual
== END 2023-03-31 01:29 | disposition short-term general hospital (02) ==
LOC: ANHED 20:20 → ANH3MED 20:55 → ANHIMU 03-30 18:42
PROVIDERS: Admitting Provider Surgery; Emergency Provider Emergency Medicine; Visit Provider Surgery
PROC: 0FT44ZZ Resection of Gallbladder, Percutaneous Endoscopic Approach (ICD-10-PCS; CPT 47562; principal; 2023-03-30 15:00)
DX: T81.89XA Other complications of procedures, not elsewhere classified, initial encounter (principal); K66.1 Hemoperitoneum; D62 Acute posthemorrhagic anemia; Y83.8 Other surgical procedures as the cause of abnormal reaction of the patient, or of later complication, without mention of misadventure at the time of the procedure; G89.18 Other acute postprocedural pain; Z90.49 Acquired absence of other specified parts of digestive tract; R10.9 Unspecified abdominal pain; R55 Syncope and collapse; R11.2 Nausea with vomiting, unspecified; R06.02 Shortness of breath; J90 Pleural effusion, not elsewhere classified; F10.90 Alcohol use, unspecified, uncomplicated; Z53.1 Procedure and treatment not carried out because of patient's decision for reasons of belief and group pressure
CPT/HCPCS: 49329; 36415; 74177; 80053; 80076; 81003; 82150; 83690; 85014; 85018; 85025; 85610; 85730; 86850; 86900; 86901; 86923; 88304; 96361; 96374; 96375; 96376; 99285; A9270; C9113; G0378; G0379; J0690; J1100; J1170; J1756; J1885; J2175; J2250; J2270; J2405; J2543; J2704; J3010; J7030; J7050; J7120; Q9967

== ENCOUNTER 2023-04-04 20:08 | Observation (INO) | payer OTHER, SELFPAY ==
--- NOTE | ~2023-04-04 | XR_ITS ---
EXAMINATION: XR chest 1V portable DATE: 04/04/2023 21:26 INDICATION: Abdominal pain. TECHNIQUE: A single frontal view of the chest was obtained. COMPARISON: CT abdomen and pelvis 03/30/2023 FINDINGS: There is no pneumonia, pleural effusion, or pneumothorax. The heart size is normal. Surgica l clips in the right upper quadrant are likely from cholecystectomy. IMPRESSION: 1. No acute cardiopulmonary disease. Reviewed, dictated and finalized at location E.
--- NOTE | ~2023-04-04 | CT_ITS ---
EXAMINATION: CT abdomen pelvis w con DATE: 04/04/2023 22:09 INDICATION: Abdominal pain at the surgical drain site. TECHNIQUE: Computed tomography (CT) of the abdomen and pelvis was performed with 100 mL Omnipaque 350 intravenous contrast. Automated exposure control and iterative reconstruction technique were employe d. The dose-length product was 268.85 mGy-cm. COMPARISON: CT abdomen and pelvis 03/30/23 FINDINGS: The visualized portions of the lung bases demonstrate mild atelectasis. No pleural effusion . The heart size is normal. No pericardial effusion. The liver is normal. There are changes of cholec ystectomy. There is fluid and gas in the gallbladder fossa measuring 3.3 x 2.1 x 2.9 cm. The spleen, pancreas, adrenal glands, and kidneys are normal. There are no dilated loops of bowel. There are lewis ges of appendectomy. There is a surgical drain the right abdomen. Inferior vena cava is duplicated. T here are no pathologically enlarged lymph nodes. There are masses in the greater omentum on the right measuring up to 2.3 x 1.4 cm. Some of the masses demonstrate peripheral calcifications. There is gas in the bladder lumen, likely from recent instrumentation. The bones are unremarkable. IMPRESSION: 1. 3.3 x 2.1 x 2.9 cm collection of fluid and gas in the gallbladder fossa. 2. Masses in the greater omentum on the right. The differential diagnosis includes fat necrosis, drop ped gallstones with inflammation, and metastatic disease. Reviewed, dictated and finalized at location E. IMPRESSION: 1. 3.3 x 2.1 x 2.9 cm collection of fluid and gas in the gallbladder fossa. 2. Masses in the greater omentum on the right. The differential diagnosis inclu jacy fat necrosis, dropped gallstones with inflammation, and metastatic disease.
[2023-04-04 20:31] VITALS: BP 98/76; PULSE 102; RESP 14; TEMP 36.9; O2SAT 100
[2023-04-04] MEDS: HYDROmorphone HCL INJ (*CRX) 1 MG/ML SYR 0.5 MG IV PUSH (21:36)
[2023-04-04] MEDS: SODIUM CHLORIDE 0.9% IV 1,000 ML 999 ML IV CONT (21:37)
[2023-04-04 21:39] LABS: Basophils Percent Auto 0.4 % (0.2-1.2); Eosinophils Absolute Auto 0.3 K/mm3 (0-0.3); Hematocrit 28.6 % (42.0-52.0); Hemoglobin 9.4 g/dL (14.0-18.0); Immature Granulocyte Absolute 0.28 K/mm3 (0.00-0.031); Immature Granulocyte Percent A 3.3 % (0-0.5); Lymphocytes Absolute Auto 2.76 K/mm3 (0.9-3.2); Lymphocytes Percent Auto 32.9 % (18.3-44.2); Mean Corpuscular HGB Conc 32.9 g/dl (32-36); Mean Corpuscular Hemoglobin 32.4 pg (26-34); Mean Corpuscular Volume 98.6 fl (80-100); Mean Platelet Volume 9.2 fl (7.4-10.4); Monocytes Absolute Auto 0.9 K/mm3 (0.1-0.6); Monocytes Percent Auto 10.3 % (2.6-8.5); Neutrophils Absolute Auto 4.2 K/mm3 (1.3-6.7); Neutrophils Percent Auto 50.1 % (45.5-73.1); Nucleated Red Blood Cells Perc 0.5 % (0.0-0.2); Platelet Count Result 410 k/mm3 (150-375); Red Cell Distribution Width 17.2 % (11.5-14.5); White Blood Count 8.4 K/mm3 (4.5-10.0)
[2023-04-04 21:46] LABS: Alanine Aminotransferase 62 U/L (6-50); Alkaline Phosphatase 73 U/L (38-126); Anion Gap 4 mmol/L (8-16); Aspartate Amino Transferase 42 U/L (17-59); Bilirubin,Total 0.3 mg/dL (0.2-1.3); Blood Urea Nitrogen 16 mg/dL (9-20); Calcium 8.9 mg/dL (8.4-10.2); Carbon Dioxide 32 mmol/L (22-30); Chloride 100 mmol/L (98-107); Estimated CRCL calculation 101 ml/min; Estimated Glomerular Filt Rate > 60; Glucose 98 mg/dL (65-110); Lipase 40 U/L (23-300); Magnesium 2.1 mg/dL (1.6-2.3); Sodium 136 mmol/L (137-145)
--- NOTE | 2023-04-04 23:21 | ED.GENADULT ---
HPI - General Adult General Chief complaint: Abdominal Pain Stated complaint: post op complications Time Seen by Provider: 04/04/23 20:45 History of Present Illness HPI narrative: This is a 22-year-old male presenting ED with chief complaint of abdominal pain. Patient had a complicated surgical course after having a cholecystectomy performed on March 29. After that he returned several days later with hemoperitoneum. Patient went to the operating room for washout but was then found to be severely anemic. He is a Jehovahs witness and was unable to receive blood products. He was then transferred down to [place] for further managing and received fractionated blood products. Since then the patient has had a CARMITA drain in place. Over the last several days he has had increased pain at the site. He says he can feel the drain moving around inside of him. He denies fever chills nausea vomiting or diarrhea. Patient has had decreased oral intake over the last several days. patient states he has has a significant amount of anxiety and distrust of the medical system after his clinical course. Related Data Home Medications Medication Instructions Recorded Confirmed No Home Medications 03/29/23 03/29/23 Allergies Allergy/AdvReac Type Severity Reaction Status Date / Time No Known Allergies Allergy Verified 04/04/23 20:08 [facility] Past Medical History Medical History Abnormal CT scan, gastrointestinal tract Cholelithiasis Nausea Upper abdominal pain Surgical History Surgical History History of appendectomy Social History Social History Smoking status: Never smoker Alcohol intake: current Alcohol use details: Maybe once a month Substance use: never Substance use type: does not use Lack of Transportation: No Lack of Food: Never True Current Housing: I Have Housing Concerned About Future Housing: No Difficulty Paying Gas/Electric Bills: No Difficulty Paying for Meds: No Currently Unemployed: No Education: Don't Know Difficulty w/ Childcare or Family Care: No Living arrangements: alone Spiritual care concerns: No Exam Narrative: APPEARANCE: Patient appears anxious Head: atraumatic. EYES: EOMI, NOSE: Atraumatic NECK: Trachea midline RESPIRATORY: No increased rate of breathing Clear to auscultation CARDIOVASCULAR: RRR, ABDOMINAL: patient has a CARMITA drain in place on the right side. Sutures are in place. Abdomen is tender in the right upper quadrant without guarding or rebound. Several well-healed surgical incision sites. MUSCULOSKELETAl: No obvious deformities NEURO: Alert. Moving 4/4 extremities SKIN:: Warm, dry. Normal color PSYCHIATRIC: Normal affect Course Vital Signs Vital signs: Vital Signs Temperature 98.5 F 04/04/23 20:31 Pulse Rate 102 H 04/04/23 20:31 Respiratory Rate 14 04/04/23 20:31 Blood Pressure 98/76 L 04/04/23 20:31 Pulse Oximetry 100 04/04/23 20:31 Oxygen Delivery Room Air 04/04/23 20:31 Temperature 98.5 F 04/04/23 20:31 Pulse Rate 102 H 04/04/23 20:31 Respiratory Rate 14 04/04/23 20:31 Blood Pressure 98/76 L 04/04/23 20:31 Pulse Oximetry 100 04/04/23 20:31 Oxygen Delivery Room Air 04/04/23 20:31 Medical Decision Making [facility] Narrative Medical decision making narrative: -Presentation: 22-year-old male presenting with abdominal pain after a complicated surgical course with cholecystectomy. -DDX includes but is not limited to: Rebleeding, drain dislodgement, intra-abdominal abscess, anxiety -Co-morbidities complicating care: job was witness, history of anemia, history of cholecystectomy, Significant missed rest of the medical system. -Social determinants of health: patient is unemployed. -External Chart Review: review of operative notes a
--- NOTE | 2023-04-04 23:43 | PC.NURSE ---
Pt and family have expressed being unhappy with care. While taking care of the pt on the other side of curtain in the shared room, family member was heard expressing if we cared about our privacy we would be at every nursing station right now While medicating pt family members are speaking to each other about their dissatisfaction. MD aware. Care continues.
[2023-04-04] MEDS: LORazepam INJ (*CRX) 2 MG/ML VIAL 1 MG IV PUSH (23:56)
[2023-04-04] MEDS: PIPERACILLN/TAZ 3.375GM/NS50ML 3.375 GM/50 ML BAG IVPB (23:57)
[2023-04-05 00:09] VITALS: BP 111/65; PULSE 88; RESP 16; O2SAT 98
[2023-04-05 02:04] VITALS: BP 111/66; PULSE 100; RESP 15; O2SAT 73
[2023-04-05 02:26] VITALS: BP 110/61; PULSE 69; RESP 18; TEMP 37.3; O2SAT 100
--- NOTE | 2023-04-05 02:33 | PC.NURSE ---
Pts significant other, Sanjeev, number [phone].
[2023-04-05 02:35] VITALS: BMI 24.7
--- NOTE | 2023-04-05 02:38 | ADMGEN ---
This patient, Quan Medina, was admitted to [facility] Surg Room 304-01. Patient/family oriented to hospital policies and general routines including ID bracelet, bed and alarms, visiting hours, pain management, procedures, bathroom and other care routines, personal items, smoking policy, room service/diet, and visiting hours. Information on how to activate the Rapid Response Team has been discussed. Patient/Family are encouraged to report perceived risks to care and to ask questions if they do not understand what they are told or what they should do.
[2023-04-05] MEDS: LACTATED RINGERS 1,000 ML 125 ML IV CONT ×3 (02:43→18:49)
[2023-04-05] MEDS: PIPERACILLN/TAZ 3.375GM/NS50ML 3.375 GM/50 ML BAG IVPB ×4 (05:50→23:43)
[2023-04-05] MEDS: HYDROmorphone HCL INJ (*CRX) 1 MG/ML SYR 0.5 MG IV PUSH (06:06)
[2023-04-05] MEDS: KETOROLAC 30 MG/ML VIAL (*BKC) IV PUSH ×2 (08:34→19:56)
[2023-04-05 10:47] VITALS: BMI 24.7
[2023-04-05] MEDS: HYDROmorphone HCL INJ (*CRX) 1 MG/ML SYR IV PUSH ×2 (12:25→21:33)
[2023-04-05] MEDS: LORazepam INJ (*CRX) 2 MG/ML VIAL 1 MG IV PUSH (12:26)
--- NOTE | 2023-04-05 13:38 | PM.IMHP ---
H&P: HPI History of Present Illness Date/Time: 04/05/23 13:38 Chief Complaint: abdominal pain Narrative: The pt is a 22 y/o M well known to my service s/p lap marley complicated by severe bleeding representing to ED following subsequent discharge from [facility] on 04/02 c/o worsening upper abdominal pain and poor appetite. Pt also reports drain seems to be painful and pulling. Pt reports s/s output of about 25 ml every 12 hours. Pt also c/o some incomplete emptying and burning as well as pneumaturia. Review of Systems Review of Systems: All systems reviewed & are unremarkable except as noted in HPI and below PMFSH Past Medical History Medical History Abnormal CT scan, gastrointestinal tract Cholelithiasis Nausea Upper abdominal pain Surgical History Surgical History History of appendectomy Social History Social History Smoking status: Never smoker Alcohol intake: never Alcohol use details: Maybe once a month Substance use: never Substance use type: does not use Lack of Transportation: No Lack of Food: Never True Current Housing: I Have Housing Concerned About Future Housing: No Difficulty Paying Gas/Electric Bills: No Difficulty Paying for Meds: No Currently Unemployed: No Education: Don't Know Difficulty w/ Childcare or Family Care: No Living arrangements: alone Spiritual care concerns: No Meds Home Medications and Allergies Home Medications Medication Instructions Recorded Confirmed Type No Home Medications 03/29/23 04/05/23 History Allergies Allergy/AdvReac Type Severity Reaction Status Date / Time No Known Allergies Allergy Verified 04/04/23 20:08 Vital Signs Vital Signs - 24 hr 04/04/23 20:31 04/05/23 00:09 04/05/23 02:04 Temperature 36.9 C Pulse Rate 102 H 88 100 Respiratory Rate 14 16 15 Blood Pressure 98/76 L 111/65 111/66 Pulse Oximetry 100 98 73 L Oxygen Delivery Room Air 04/05/23 02:26 Temperature 37.3 C Pulse Rate 69 Respiratory Rate 18 Blood Pressure 110/61 Pulse Oximetry 100 Oxygen Delivery Exam Const: General: cooperative, comfortable, no acute distress and anxious Resp: Auscultation: clear to auscultation bilaterally Cardio: Rate: regular rate Rhythm: regular rhythm GI: Inspection: normal to inspection, non-distended and incision GI Palp: Yes abdominal tenderness, Yes Soft to palpation, Yes Tenderness to palpation present (GI), No Guarding due to palpation present (GI) and No Rigid due to palpation Other: CARMITA c minimal s/s drainage Skin: General skin exam: normal color and no rashes or lesions noted Neuro: General: patient oriented x3 and CN's II-XI intact bilaterally Extrem: General: normal to inspection and full ROM Psych: Appearance: grossly normal H&P: Results Labs Labs: Short CBC 04/04/23 Range/Units 21:26 WBC 8.4 (4.5-10.0) K/mm3 Hgb 9.4 L D (14.0-18.0) g/dL Hct 28.6 L (42.0-52.0) % Plt Count 410 H (150-375) k/mm3 BMP 04/04/23 21:26 Sodium 136 L Potassium 4.0 Chloride 100 Carbon Dioxide 32 H BUN 16 Creatinine 0.90 Glucose 98 Calcium 8.9 Liver Function 04/04/23 Range/Units 21:26 Total Bilirubin 0.3 (0.2-1.3) mg/dL AST 42 (17-59) U/L ALT 62 H (6-50) U/L Alkaline Phosphatase 73 (38-126) U/L Albumin 4.0 (3.5-5.1) g/dL Imaging CT scan - abdomen: My impression: RUQ GB fossa fluid collection, CARMITA drain anterior over liver c no further drainable fluid Assessment and Plan Assessment and plan (1) Postoperative abdominal pain: Code(s): R10.9 - Unspecified abdominal pain; G89.18 - Other acute postprocedural pain Status: Acute Assessment and Plan: likely from drain, will remove at bedside, fluid collection in fossa likely surgicel, will follo
[2023-04-05 13:47] VITALS: BP 121/73; PULSE 88; RESP 20; TEMP 36.4; O2SAT 97
--- NOTE | 2023-04-05 14:38 | WPDURCON ---
Assessment and Plan Assessment and plan (1) Lower urinary tract symptoms: Code(s): R39.9 - Unspecified symptoms and signs involving the genitourinary system Status: Acute Assessment and Plan: A male without prior significant urologic history he was having ongoing mild, slowly resolving irritable voiding and pneumaturia following a recent Caro catheter removal. CT scan of the abdomen and pelvis on 03 30 and 71 show no pelvic pathology to suggest colovesical fistula and he has no risk factors for that. U/A on 03/30 was unremarkable. I explained to him that his voiding symptoms are almost certainly due to residual irritation from an indwelling catheter. I explained that they would slowly resolved. I offered urinary tract anesthetic such as peridium but he elected to defer. I would not intervene with additional diagnostic imaging for this at this time. Urology Consult Note HPI Date Seen: 04/05/23 Requesting Physician: Ciro Zurita MD Primary Care Provider: [facility] [facility] PHYSICIAN Consult Narrative Narrative: Quan Medina is a 22 year old male who we were asked to see for irritable voiding following Caro catheter removal several days ago. Patient is an otherwise healthy 22-year-old without prior significant urological history. He has had a recent complicated cholecystectomy. For couple days he had an indwelling catheter in since removal he has noted increased urinary frequency urgency and some gurgling (likely consistent with pneumaturia). This seems to be slowly resolving with time. He denies any hematuria. He has no history of recurrent urinary tract infections or urolithiasis in the past. Review of Systems Review of Systems: All systems reviewed & are unremarkable except as noted in HPI and below PMFSH Past Medical History Medical History Abnormal CT scan, gastrointestinal tract Cholelithiasis Nausea Upper abdominal pain Surgical History Surgical History History of appendectomy Social History Social History Smoking status: Never smoker Alcohol intake: never Alcohol use details: Maybe once a month Substance use: never Substance use type: does not use Lack of Transportation: No Lack of Food: Never True Current Housing: I Have Housing Concerned About Future Housing: No Difficulty Paying Gas/Electric Bills: No Difficulty Paying for Meds: No Currently Unemployed: No Education: Don't Know Difficulty w/ Childcare or Family Care: No Living arrangements: alone Spiritual care concerns: No Meds Home Medications and Allergies Home Medications Medication Instructions Recorded Confirmed Type No Home Medications 03/29/23 04/05/23 History Allergies Allergy/AdvReac Type Severity Reaction Status Date / Time No Known Allergies Allergy Verified 04/04/23 20:08 Vital Signs Vital Signs - 24 hr 04/04/23 20:31 04/05/23 00:09 04/05/23 02:04 Temperature 98.5 F Pulse Rate 102 H 88 100 Respiratory Rate 14 16 15 Blood Pressure 98/76 L 111/65 111/66 Pulse Oximetry 100 98 73 L Oxygen Delivery Room Air 04/05/23 02:26 04/05/23 13:47 Temperature 99.2 F 97.5 F L Pulse Rate 69 88 Respiratory Rate 18 20 Blood Pressure 110/61 121/73 Pulse Oximetry 100 97 Oxygen Delivery Exam Const: General: no acute distress Resp: Effort & Inspection: normal respiratory effort GI: Inspection: non-distended and other (exam as per gen. surgery) GI Palp: No abdominal tenderness and No Guarding due to palpation present (GI) Auscultation: normal bowel sounds Results Labs 04/04/23 21:26 04/04/23 21:26 Labs: Short CBC 04/04/23 Range/Units 21:26 WBC 8.4 (4.5-10.0) K/mm3 Hgb 9.4 L D (14.0-18.0) g/dL Hct 28.6 L (42.0-52.0) % Plt Count 410 H (150-375)
[2023-04-05 17:43] LABS: Appearance Urine Clear (Clear); Bilirubin Urine Negative (Negative); Blood Urine Negative (Negative); Color Urine Yellow (Yellow); Glucose Urine UA Negative (Negative); Ketones Urine Negative (Negative); Leukocyte Esterase Ur Negative LEU/UL (NEGATIVE); Nitrate Urine Negative (Negative); Protein Urine Negative (Negative); Specific Grav Ur 1.019 (1.001-1.035); pH Urine 7.5 (5.0-9.0)
[2023-04-05 17:47] LABS: Add Urine Microscopic? NO
--- NOTE | 2023-04-05 18:37 | PC.NURSE ---
Upon arrival to floor, pt extremely nervous and anxious about his condition and repeatedly requesting Renan to come to the floor immediately. Explained that Renan would be up later in the morning. Pt upset that he had been here for 14 hours (since 1900) and the doctor had not come up immediately. Call to Renan requesting him to come to the floor; Urrutia an hour away. Zurita into pt room attempting to calm, educate and reassure pt. Pt continues to worry as he is uncertain that he is not still bleeding and that something is not going wrong currently. He stated that last time he thought he was safe, he almost . On his board, someone had changed the goal from pain control to pain control and do not . Sister and at bedside. Renan arrived and stayed in room for 30+ minutes helping pt and family understand reports and current concerns. Eventually pt agreeable to having CARMITA drain removed. Pt tolerated procedure well and states he feels much improved since drain removed. Pt tolerating eating, took a shower, and was able to take a nap. Will continue to monitor.
[2023-04-05] MEDS: ONDANSETRON INJ 4 MG/2 ML VIAL IV PUSH (19:57)
[2023-04-05 21:00] VITALS: BP 126/67; PULSE 91; RESP 12; TEMP 37.1; O2SAT 99
[2023-04-05] MEDS: LORazepam (*CRX) 0.5 MG TABLET 0.25 MG PO (21:34)
[2023-04-06 05:29] VITALS: BP 114/76; PULSE 84; RESP 12; TEMP 36.6; O2SAT 100
[2023-04-06] MEDS: PIPERACILLN/TAZ 3.375GM/NS50ML 3.375 GM/50 ML BAG IVPB ×2 (06:07→11:29)
[2023-04-06 08:16] VITALS: O2SAT 99
[2023-04-06 10:07] LABS: Hematocrit 27.8 % (42.0-52.0); Hemoglobin 8.8 g/dL (14.0-18.0); Mean Corpuscular HGB Conc 31.7 g/dl (32-36); Mean Corpuscular Hemoglobin 31.9 pg (26-34); Mean Corpuscular Volume 100.7 fl (80-100); Mean Platelet Volume 9.3 fl (7.4-10.4); Platelet Count Result 406 k/mm3 (150-375); Red Blood Count 2.76 M/mm3 (4.6-6.20); Red Cell Distribution Width 17.2 % (11.5-14.5); White Blood Count 6.5 K/mm3 (4.5-10.0)
[2023-04-06] MEDS: HYDROmorphone HCL INJ (*CRX) 1 MG/ML SYR IV PUSH (11:30)
--- NOTE | 2023-04-06 13:54 | PM.DS ---
DS: Admitting Diagnosis Discharge Date 04/06/2023 Admitting Diagnosis abdominal pain DS: Discharge Diagnosis Discharge Diagnosis (1) Postoperative abdominal pain: Code(s): R10.9 - Unspecified abdominal pain; G89.18 - Other acute postprocedural pain Status: Acute Assessment and Plan: resolved once RUQ CARMITA removed, continue routine postoperative care, follow-up 2 weeks (2) Pneumaturia: Code(s): R39.89 - Other symptoms and signs involving the genitourinary system Status: Acute Assessment and Plan: appreciate urology consultation, no further issues at this time (3) Anxiety: Code(s): F41.9 - Anxiety disorder, unspecified Status: Acute Assessment and Plan: controlled with medication, will discharge home with Ativan 0.25 mg q6 p.r.n. DS: Summary Hospital Course Reason for hospitalization: postoperative abdominal pain Hospital Course: The patient is a 22-year-old male well known to my service from previous cholecystectomy complicated by postoperative bleed. The patient re-presented to the emergency department on 04/04 with increasing abdominal pain, anxiety. Workup in the emergency department, including imaging, was significant for fluid collection in the gallbladder fossa. Given these findings, the patient was admitted to my service for further workup and treatment. Upon evaluating the patient, including reviewing the CT scan with the radiologist, it was determined that the fluid in the fossa was most likely the Surgicel that had been left. The patient's white blood cell count was normal throughout the entirety of his hospital stay. Patient denies any fevers or chills and was hemodynamically stable. He was complaining of pain around the drain site and in the right upper quadrant. CT review of the drain showed no further collections of fluid and subsequently the drain was removed. Once the drain roots were removed the patient reported immediate relief. The patient also complained of some pneumaturia. Urology consult was obtained and was noted to be from previous instrumentation. The patient was also very anxious from his previous bleeding episode and this was controlled with Ativan. The patient is now stable and wants to be discharged home. He will be discharged with additional Ativan to control anxiety. He will follow-up with me in 2 weeks. Status at Discharge Functional status at discharge: independent ambulation Overall status at discharge: patient is progressing back to baseline Time Spent with Patient Time attestation: Total time spent providing and/or coordinating discharge services: Time spent: Less than 30 minutes Exam Const: General: cooperative, comfortable and no acute distress Resp: Auscultation: clear to auscultation bilaterally Cardio: Rate: regular rate Rhythm: regular rhythm GI: Inspection: normal to inspection, non-distended and incision GI Palp: No abdominal tenderness, Yes Soft to palpation, No Tenderness to palpation present (GI), No Guarding due to palpation present (GI) and No Rigid due to palpation DS: Data Data Completed and Pending Labs on day of discharge: Labs from last 24 hours 04/06/23 04/05/23 09:49 17:28 WBC 6.5 RBC 2.76 L Hgb 8.8 L Hct 27.8 L MCV 100.7 H MCH 31.9 MCHC 31.7 L RDW 17.2 H Plt Count 406 H MPV 9.3 Urine Color Yellow Urine Appearance Clear Urine pH 7.5 Ur Specific [place] 1.019 Urine Protein Negative Urine Glucose (UA) Negative Urine Ketones Negative Ur Blood (Man) Negative Urine Nitrate Negative Urine Bilirubin Negative Urine Urobilinogen 1.0 Ur Leukocyte Esterase Negative Discharge Plan Discharge Attending physician on discharge: Chiara Urrutia Consulting providers: Matthias Osman; Naman Hernandez Discharging Clinician: Chiara Urrutia Anticipated Discharge Date/Time: 04/06/23 13:50 Patient Disposition: Home, Self-Care Activity: no
[2023-04-06 14:00] VITALS: BP 122/84; PULSE 88; RESP 20; TEMP 36.7; O2SAT 100
--- NOTE | 2023-04-06 14:24 | PC.NURSE ---
pt requested that this nurse write a note stating that he had asked for the epoetin during his care prior to my shift and pt stated to this nurse he was told that it wouldn't make a difference. I offered to call doctor and ask if I could get an order for him as I have one on the unit but just needing an order. Pt states that he wants to see what his body does and is declining the offer to call doctor to get an order and that he just wanted me to write a note that he asked for epoetin and he told me that a staff member told him that it wouldn't make a difference, but he would have taken it earlier in his care if it was offered to him
== END 2023-04-06 15:30 | disposition home or self-care (01) ==
LOC: ANHED 23:29 → ANH3MEDSUR 04-05 01:50
PROVIDERS: Admitting Provider Surgery; Emergency Provider Emergency Medicine; Visit Provider Surgery
DX: G89.18 Other acute postprocedural pain (principal); R10.9 Unspecified abdominal pain; R39.89 Other symptoms and signs involving the genitourinary system; F41.9 Anxiety disorder, unspecified; D64.9 Anemia, unspecified; R33.9 Retention of urine, unspecified; R30.0 Dysuria; R63.0 Anorexia; Z97.8 Presence of other specified devices; Z68.24 Body mass index [BMI] 24.0-24.9, adult; Z90.49 Acquired absence of other specified parts of digestive tract; F10.90 Alcohol use, unspecified, uncomplicated
CPT/HCPCS: 36415; 71045; 74177; 80053; 81003; 83605; 83690; 83735; 85025; 85027; 96361; 96365; 96366; 96374; 96375; 96376; 99285; A9270; G0378; J1170; J1885; J2060; J2405; J2543; J7030; J7120; Q9967

== ENCOUNTER 2024-03-17 11:09 | Outpatient (CLI) | payer OTHER, SELFPAY ==
--- NOTE | ~2024-03-17 | US_ITS ---
EXAMINATION: US abdomen complete DATE: 03/17/2024 11:35 INDICATION: Abdominal pain. TECHNIQUE: Multiple grayscale and Doppler ultrasound images of the abdomen were obtained. COMPARISON: CT abdomen and pelvis 04/04/2023 FINDINGS: Abdominal aorta is normal in caliber. The visualized portions of the head and body of the p ancreas are normal. The liver is normal without focal lesion. There is normal flow in main portal vei n. The gallbladder is absent. The common duct is normal and measures 4 mm. The inferior vena cava is normal. The spleen is normal in size. The kidneys are normal in size. IMPRESSION: 1. Normal complete abdomen ultrasound status post cholecystectomy. Reviewed, dictated and finalized at location A.
== END 2024-03-17 11:10 | disposition home or self-care (01) ==
LOC: CHSIMG 11:10
PROVIDERS: PCP Physician Assistant; Visit Provider Physician Assistant
DX: R10.9 Unspecified abdominal pain (principal); Z90.49 Acquired absence of other specified parts of digestive tract
CPT/HCPCS: 76700

== ENCOUNTER 2024-04-25 10:16 | Outpatient (CLI) | payer OTHER, SELFPAY ==
--- NOTE | ~2024-04-25 | XR_ITS ---
EXAMINATION: XR lumbar spine 2-3V DATE: 04/25/2024 10:39 INDICATION: Low back pain. TECHNIQUE: 3 views of lumbar spine were obtained. COMPARISON: CT abdomen and pelvis 04/25/2024 FINDINGS: There is 6 degrees levocurvature of lumbar spine. There is mild chronic anterior wedging of T12 and L1 vertebral bodies. Intervertebral disc heights are normal. There is multilevel mild facet joint osteoarthritis. Surgical clips in the right upper quadrant are likely from cholecystectomy. IMPRESSION: 1. Mild lumbar facet joint osteoarthritis. Reviewed, dictated and finalized at location A.
--- NOTE | ~2024-04-25 | CT_ITS ---
CT of the Abdomen and Pelvis: Indication: Abdominal pain Technique: 2.5 mm axial scans were obtained through the abdomen and pelvis following intravenous adm inistration of 100 cc of Omnipaque 350. Dose reduction technique was used on this scan by utilizing a utomated exposure control and iterative reconstruction technique. The dose-length product (DLP) was 2 86.38 mGy-cm. COMPARISON: 04/04/2023 Findings: Scans through the lung bases are unremarkable. The liver, spleen, pancreas, adrenals and kidneys are within normal limits. Cholecystectomy clips are present. No evidence of aortic aneurysm. Persistent left IVC noted. No lymphadenopathy. No bowel obstruction or bowel wall thickening. Status post appendectomy. Stable small cystic areas of focal calcifications in the anterior right mesentery. Images through the pelvis were performed. Urinary bladder unremarkable. Prostate gland enlarged. No a scites. Impression: No acute abnormality. Stable small cystic areas with focal calcifications in the anterior mesentery these are of uncertain precise etiology, but stability suggests a benign etiology. Reviewed, dictated and finalized at [facility] [place]. Impression: No acute abnormality. Stable small cystic areas with focal calcifications in the anterior mesentery t hese are of uncertain precise etiology, but stability suggests a benign etiolog y.
== END 2024-04-25 10:17 | disposition home or self-care (01) ==
LOC: CHSIMG 10:19
PROVIDERS: PCP Physician Assistant; Visit Provider Physician Assistant
DX: M54.50 Low back pain, unspecified (principal); M85.88 Other specified disorders of bone density and structure, other site; R93.5 Abnormal findings on diagnostic imaging of other abdominal regions, including retroperitoneum
CPT/HCPCS: 72100; 74177; Q9967